=== PATIENT | male | born 1970 | race Caucasian/White ===

== ENCOUNTER 2017-07-28 12:02 | Day surgery (SDC) | payer OTHER ==
[~2017-07-28] VITALS: Ht 182.9 cm; Wt 81.6 kg
[~2017-07-28 12:02] MED LIST: AMITIZA24 MICROGR PO; ATIVAN2 MG PO; Ativan PO; CIALIS2.5 MG PO; CREON DR 12,001 EAC1 PO; DILAUDID4 MG PO; Habitrol,Nicoderm CQ TD; LISINOPRIL10 MG PO; LORAZEPAM2 MG PO; OXYCODONE HCL20 M1 PO; OXYCONTIN40 MG PO; PRILOSEC OTC20 MG PO; PRILOSEC20 MG PO; PROZAC20 MG PO; PROZAC40 MG PO; Percocet 5/325,Endoc PO; PriLOSEC PO; Reglan PO; Zestril,Prinivil PO; oxyCODONE PO
[2017-07-28 12:29] VITALS: BP 121/74
[2017-07-28 12:47] LABS: PTT 34.5 SEC (25-37)
[2017-07-28] MEDS ORDERED: MOTRIN600 MG PO (15:15)
[2017-07-28 15:32] VITALS: BP 124/78
[2017-07-28 16:25] VITALS: BP 111/68
== END 2017-07-28 16:33 | disposition home or self-care (01) ==
LOC: SDC 12:02
PROVIDERS: Thoracic Surgery (Cardiothoracic Vascular Surgery)
PROC: 0HBAXZZ Excision of Inguinal Skin, External Approach (ICD-10-PCS; principal; 2017-07-28)
PROC: 0VB Male Reproductive System, Excision (ICD-10-PCS; principal; 2017-07-28)
DX: L72.0 Epidermal cyst (principal); I10 Essential (primary) hypertension; E78.5 Hyperlipidemia, unspecified; K21.9 Gastro-esophageal reflux disease without esophagitis; K59.09 Other constipation; K86.1 Other chronic pancreatitis; F17.210 Nicotine dependence, cigarettes, uncomplicated; Z82.49 Family history of ischemic heart disease and other diseases of the circulatory system; Z83.3 Family history of diabetes mellitus; Z83.79 Family history of other diseases of the digestive system
CPT/HCPCS: 85610; 85730; 87070; 87075; 87076; 87185; 87205; 88304; 93005; J0690; J1885; J2405; J3010; S0020